=== PATIENT | female | born 1990 | race Hispanic/Latino ===

== ENCOUNTER 2017-06-23 00:05 | Emergency (ER) | payer MEDICAID ==
[2017-06-23 01:39] LABS: APPEARANCE,URINE Cloudy (CLEAR); BILIRUBIN,URINE Negative (NEGATIVE); COLOR,URINE Yellow (YELLOW); GLUCOSE, URINE (UA) Negative (NEGATIVE); KETONES,URINE Negative (NEGATIVE); LEUKOCYTE ESTERASE ,URINE Large (NEGATIVE); NITRATE,URINE Negative (NEGATIVE); OCCULT BLOOD,URINE Large (NEGATIVE); PROTEIN,URINE 300 (NEGATIVE)
[2017-06-23 01:42] LABS: HCG,QUAL RESULT NEGATIVE (NEGATIVE)
[2017-06-23 01:47] LABS: AMORPHOUS SEDIMENT,UR Few /LPF (None Seen); BACTERIA,URINE Rare /HPF (None Seen); MUCUS,URINE Moderate LPF (None Seen); SQUAMOUS EPITHELIAL CELL,UR Few /LPF (0-2); WBC,URINE 51-100 /HPF (0-1)
[2017-06-23] MEDS ORDERED: LIDOCAINE HCL-MPF 1% 2ML VIAL ONE (02:06)
[2017-06-23] MEDS ORDERED: CEFTRIAXONE SODIUM 1 GM ONE (02:06)
[2017-06-23] MEDS ORDERED: PHENAZOPYRIDINE HCL 200 MG TABLET ONE (02:06)
== END 2017-06-23 02:35 | disposition home or self-care (01) ==
LOC: EDH 00:05
DX: N39.0 Urinary tract infection, site not specified (principal); F90.9 Attention-deficit hyperactivity disorder, unspecified type; Z90.49 Acquired absence of other specified parts of digestive tract
CPT/HCPCS: 81001; 81025; 96372; 99284; J0696; J3490

== ENCOUNTER 2017-09-15 23:08 | Emergency (ER) | payer MEDICAID, OTHER ==
[2017-09-16 00:03] LABS: APPEARANCE,URINE Clear (CLEAR); BILIRUBIN,URINE Negative (NEGATIVE); COLOR,URINE Yellow (YELLOW); GLUCOSE, URINE (UA) Negative (NEGATIVE); KETONES,URINE Negative (NEGATIVE); LEUKOCYTE ESTERASE ,URINE Moderate (NEGATIVE); NITRATE,URINE Negative (NEGATIVE); OCCULT BLOOD,URINE Negative (NEGATIVE); PH,URINE 5.5 (5.0-8.0); PROTEIN,URINE Negative (NEGATIVE)
[2017-09-16 00:05] LABS: HCG,QUAL RESULT POSITIVE (NEGATIVE)
[2017-09-16 00:10] LABS: RAPID GROUP A STREP NEGATIVE (NEGATIVE)
[2017-09-16 00:13] LABS: RBC,URINE 0-1 /HPF (0-1)
[2017-09-16 00:14] LABS: BACTERIA,URINE Few /HPF (None Seen); MUCUS,URINE Moderate LPF (None Seen)
== END 2017-09-16 00:46 | disposition home or self-care (01) ==
LOC: EDH 23:08
DX: N30.00 Acute cystitis without hematuria (principal); J06.9 Acute upper respiratory infection, unspecified; Z33.1 Pregnant state, incidental; F41.9 Anxiety disorder, unspecified; F90.9 Attention-deficit hyperactivity disorder, unspecified type
CPT/HCPCS: 81001; 81025; 87088; 87186; 87804; 87880

== ENCOUNTER 2018-04-09 19:51 | Observation (INO) | payer MEDICAID ==
[2018-04-09 20:44] LABS: APPEARANCE,URINE Cloudy (CLEAR); BILIRUBIN,URINE Moderate (NEGATIVE); COLOR,URINE Dark Yellow (YELLOW); GLUCOSE, URINE (UA) Negative (NEGATIVE); KETONES,URINE >=160 mg/dL (NEGATIVE); LEUKOCYTE ESTERASE ,URINE Moderate (NEGATIVE); NITRATE,URINE Negative (NEGATIVE); OCCULT BLOOD,URINE Negative (NEGATIVE); PH,URINE 5.5 (5.0-8.0); PROTEIN,URINE Trace (NEGATIVE)
[2018-04-09] MEDS: LACTATED RINGERS 1000ML IV PRN ×2 (20:47→23:11)
[2018-04-09 20:52] LABS: AMPHET/METH SCREEN,URINE NEGATIVE (NEGATIVE); BARBITURATE SCREEN, URINE NEGATIVE (NEGATIVE); BENZODIAZEPINES SCREEN,URINE NEGATIVE (NEGATIVE); CANNABINOID SCREEN,URINE NEGATIVE (NEGATIVE); COCAINE SCREEN,URINE NEGATIVE (NEGATIVE); OPIATE SCREEN,URINE NEGATIVE (NEGATIVE); PHENCYCLIDINE SCREEN,URINE NEGATIVE (NEGATIVE)
[2018-04-09 21:23] LABS: BACTERIA,URINE Few /HPF (None Seen); MUCUS,URINE Many LPF (None Seen); RBC,URINE None Seen /HPF (0-1)
[2018-04-09] MEDS ORDERED: ONDANSETRON HCL 4 MG/2 ML VIAL IVP SCH (22:00)
== END 2018-04-10 00:35 | disposition home or self-care (01) ==
LOC: EDH 19:51 → LDH 19:52
PROVIDERS: ADMIT Obstetrics & Gynecology; ATTEND Obstetrics & Gynecology
DX: O21.2 Late vomiting of pregnancy (principal); O62.9 Abnormality of forces of labor, unspecified; O26.893 Other specified pregnancy related conditions, third trimester; R19.7 Diarrhea, unspecified; Z3A.34 34 weeks gestation of pregnancy; Z79.899 Other long term (current) drug therapy
CPT/HCPCS: 80305; 81001; 96361 ×2; 96374; G0378 ×5; J2405; J7120 ×2; 96360

== ENCOUNTER 2018-05-12 03:27 | Inpatient (IN) | payer MEDICAID | END 2018-05-14 16:45 | disposition home or self-care (01) | LOC: LDH 03:27 → WSH 15:14 | PROC: 10E0XZZ Delivery of Products of Conception, External Approach (ICD-10-PCS; principal; ~2018-05-12) | DX: O80 Encounter for full-term uncomplicated delivery (principal); Z37.0 Single live birth ==

== ENCOUNTER 2018-07-16 02:45 | Emergency (ER) | payer MEDICAID, OTHER ==
[2018-07-16 03:14] LABS: APPEARANCE,URINE Clear (CLEAR); BILIRUBIN,URINE Negative (NEGATIVE); COLOR,URINE Yellow (YELLOW); GLUCOSE, URINE (UA) Negative (NEGATIVE); KETONES,URINE Trace mg/dL (NEGATIVE); LEUKOCYTE ESTERASE ,URINE Moderate (NEGATIVE); NITRATE,URINE Positive (NEGATIVE); OCCULT BLOOD,URINE Negative (NEGATIVE); PROTEIN,URINE Negative (NEGATIVE)
[2018-07-16 03:19] LABS: HCG,QUAL RESULT NEGATIVE (NEGATIVE)
[2018-07-16 03:30] LABS: BACTERIA,URINE Many /HPF (None Seen); MUCUS,URINE Rare LPF (None Seen); RBC,URINE 0-1 /HPF (0-1); SQUAMOUS EPITHELIAL CELL,UR Moderate /HPF (0-2)
[2018-07-16] MEDS ORDERED: PHENAZOPYRIDINE HCL 200 MG TABLET ONE (03:49)
[2018-07-16] MEDS ORDERED: NITROFURANTOIN MONOHYD/M-CRYST 100 MG CAPSULE PO ONE (03:49)
== END 2018-07-16 04:13 | disposition home or self-care (01) ==
LOC: EDH 02:45
DX: N30.00 Acute cystitis without hematuria (principal); F90.9 Attention-deficit hyperactivity disorder, unspecified type; F41.9 Anxiety disorder, unspecified; F32.9 Major depressive disorder, single episode, unspecified
CPT/HCPCS: 81001; 81025; 87077; 87088; 87186

== ENCOUNTER 2018-09-10 21:13 | Emergency (ER) | payer MEDICAID, OTHER ==
[2018-09-10 21:49] LABS: APPEARANCE,URINE Clear (CLEAR); BILIRUBIN,URINE Negative (NEGATIVE); COLOR,URINE Dark Yellow (YELLOW); GLUCOSE, URINE (UA) Negative (NEGATIVE); KETONES,URINE Trace mg/dL (NEGATIVE); LEUKOCYTE ESTERASE ,URINE Moderate (NEGATIVE); NITRATE,URINE Negative (NEGATIVE); OCCULT BLOOD,URINE Negative (NEGATIVE); PH,URINE 5.5 (5.0-8.0); PROTEIN,URINE Negative (NEGATIVE)
[2018-09-10 21:53] LABS: HCG,QUAL RESULT POSITIVE (NEGATIVE)
[2018-09-10 22:06] LABS: BACTERIA,URINE Few /HPF (None Seen); RBC,URINE None Seen /HPF (0-1)
== END 2018-09-10 22:15 | disposition home or self-care (01) ==
LOC: EDH 21:13
DX: O23.41 Unspecified infection of urinary tract in pregnancy, first trimester (principal); O99.341 Other mental disorders complicating pregnancy, first trimester; F41.8 Other specified anxiety disorders; F32.9 Major depressive disorder, single episode, unspecified; F90.9 Attention-deficit hyperactivity disorder, unspecified type; Z90.49 Acquired absence of other specified parts of digestive tract; Z3A.01 Less than 8 weeks gestation of pregnancy
CPT/HCPCS: 81001; 81025

== ENCOUNTER 2019-03-29 23:52 | Emergency (ER) | payer MEDICAID | END 2019-03-30 00:36 | disposition home or self-care (01) | LOC: EDH 23:52 | DX: O9A.213 Injury, poisoning and certain other consequences of external causes complicating pregnancy, third trimester (principal); S69.81XA Other specified injuries of right wrist, hand and finger(s), initial encounter; Z3A.30 30 weeks gestation of pregnancy; X12.XXXA Contact with other hot fluids, initial encounter; Y93.89 Activity, other specified; Y92.89 Other specified places as the place of occurrence of the external cause; Y99.8 Other external cause status ==

== ENCOUNTER 2019-07-31 02:34 | Emergency (ER) | payer MEDICAID ==
[~2019-07-31 02:34] MED LIST: FERR-82 PO; PREN-154 PO
== END 2019-07-31 02:50 | disposition home or self-care (01) ==
LOC: EDH 02:34
DX: B34.9 Viral infection, unspecified (principal); F32.9 Major depressive disorder, single episode, unspecified; F41.9 Anxiety disorder, unspecified; F90.9 Attention-deficit hyperactivity disorder, unspecified type; Z90.49 Acquired absence of other specified parts of digestive tract
CPT/HCPCS: 99281

== ENCOUNTER 2021-01-06 02:23 | Emergency (ER) | payer MEDICAID ==
[~2021-01-06] VITALS: Ht 160 cm; Wt 78.0 kg
[2021-01-06 02:28] VITALS: BP 119/71
[2021-01-06 02:35] VITALS: BP 107/68
[2021-01-06] MEDS ORDERED: FAMOTIDINE 20MG VIAL IV ONE ×2 (03:00→03:08)
[2021-01-06] MEDS ORDERED: ONDANSETRON 4MG INJ IVP ONE (03:00)
[2021-01-06] MEDS ORDERED: 0.9%NACL 1000ML 1,000 ML IV ONE (03:00)
[2021-01-06] MEDS ORDERED: ONDANSETRON 4MG INJ ONE (03:08)
[2021-01-06 03:16] LABS: APPEARANCE,URINE CLEAR (CLEAR); BILIRUBIN,URINE NEGATIVE (NEGATIVE); COLOR,URINE YELLOW (YELLOW); GLUCOSE, URINE (UA) NEGATIVE (NEGATIVE); HCG,QUAL RESULT NEGATIVE (NEGATIVE); KETONES,URINE NEGATIVE (NEGATIVE); LEUKOCYTE ESTERASE ,URINE NEGATIVE (NEGATIVE); NITRATE,URINE NEGATIVE (NEGATIVE); OCCULT BLOOD,URINE NEGATIVE (NEGATIVE); PH,URINE 6.5 (5.0-8.0); PROTEIN,URINE NEGATIVE (NEGATIVE)
[2021-01-06 03:23] LABS: BASOPHILS % (AUTO) 0.2 % (0.0-5.0); EOSINOPHILS % (AUTO) 1.5 % (0.0-8.0); HEMATOCRIT 34.3 % (36-48); LYMPHOCYTES % (AUTO) 31.1 % (21.0-51.0); MEAN CORPUSCULAR HEMOGLOBIN 19.8 pg (27.0-33.0); MEAN CORPUSCULAR HGB CONC 28.6 g/dL (32.0-36.0); MEAN CORPUSCULAR VOLUME 69.4 fL (79-99); MONOCYTES % (AUTO) 8.1 % (3.0-13.0); NEUTROPHILS % (AUTO) 58.9 % (40.0-77.0); PLATELET COUNT (AUTO) 393 K/uL (130-400); RED BLOOD CELL COUNT(AUTO) 4.94 MIL/uL (4.00-5.50); RED CELL DISTRIBUTION WIDTH 19.1 % (11.0-15.5); WHITE BLOOD COUNT (AUTO) 8.6 K/uL (4.8-10.8)
[2021-01-06 03:33] LABS: CREATININE 0.8 mg/dL (0.5-1.5)
[2021-01-06 03:37] LABS: ALBUMIN 3.7 g/dL (3.5-5.0); BILIRUBIN,TOTAL 0.6 mg/dL (0.2-1.0); TOTAL PROTEIN, SERUM 8.1 g/dL (6.0-8.3)
[2021-01-06] MEDS ORDERED: PANT40TA PO (04:22)
[2021-01-06] MEDS ORDERED: ONDA4TAB10 PO (04:22)
[2021-01-06 04:43] VITALS: BP 119/63
== END 2021-01-06 04:43 | disposition home or self-care (01) ==
LOC: EDH 02:23
DX: B34.9 Viral infection, unspecified (principal); E86.9 Volume depletion, unspecified; Z20.822 Contact with and (suspected) exposure to COVID-19; R11.2 Nausea with vomiting, unspecified; F41.9 Anxiety disorder, unspecified; F32.9 Major depressive disorder, single episode, unspecified; F90.9 Attention-deficit hyperactivity disorder, unspecified type; Z79.899 Other long term (current) drug therapy
CPT/HCPCS: 36415; 80053; 81003; 81025; 83690; 85025; 87635; 96374; 96375; 99284; C9803; J2405; S0028; J3490

== ENCOUNTER 2021-02-06 12:47 | Emergency (ER) | payer MEDICAID ==
[~2021-02-06] VITALS: Ht 160 cm; Wt 79.4 kg
[~2021-02-06 12:47] MED LIST changes: +ONDA4TAB10 PO; +PANT40TA PO
[2021-02-06 12:48] VITALS: BP 112/71
[2021-02-06 13:50] LABS: APPEARANCE,URINE TURBID (CLEAR); BILIRUBIN,URINE SMALL (NEGATIVE); COLOR,URINE YELLOW (YELLOW); GLUCOSE, URINE (UA) NEGATIVE (NEGATIVE); KETONES,URINE 5 mg/dL (NEGATIVE); LEUKOCYTE ESTERASE ,URINE SMALL (NEGATIVE); NITRATE,URINE NEGATIVE (NEGATIVE); OCCULT BLOOD,URINE LARGE (NEGATIVE); PH,URINE 5.5 (5.0-8.0); PROTEIN,URINE 30 mg/dL (NEGATIVE)
[2021-02-06 14:08] LABS: BACTERIA,URINE Many /HPF (None Seen); MUCUS,URINE Moderate LPF (None Seen); RBC,URINE 0-1 /HPF (0-1); SQUAMOUS EPITHELIAL CELL,UR Many /HPF (0-2); WBC,URINE 0-1 /HPF (0-1)
[2021-02-06 14:11] LABS: HCG,QUAL RESULT NEGATIVE (NEGATIVE)
== END 2021-02-06 15:54 | disposition home or self-care (01) ==
LOC: EDH 12:47
DX: R51.9 Headache, unspecified (principal); M54.9 Dorsalgia, unspecified; N93.9 Abnormal uterine and vaginal bleeding, unspecified; F90.9 Attention-deficit hyperactivity disorder, unspecified type
CPT/HCPCS: 36415; 81001; 81025; 84703; 87077; 87088; 87186

== ENCOUNTER 2021-03-21 01:39 | Emergency (ER) | payer MEDICAID ==
[~2021-03-21] VITALS: Ht 160 cm; Wt 78.0 kg
[2021-03-21 07:17] LABS: APPEARANCE,URINE Turbid (CLEAR); BILIRUBIN,URINE Negative (NEGATIVE); COLOR,URINE Yellow (YELLOW); GLUCOSE, URINE (UA) Negative (NEGATIVE); HCG,QUAL RESULT NEGATIVE (NEGATIVE); KETONES,URINE Negative (NEGATIVE); LEUKOCYTE ESTERASE ,URINE Large (NEGATIVE); NITRATE,URINE Negative (NEGATIVE); OCCULT BLOOD,URINE Negative (NEGATIVE); PROTEIN,URINE Negative (NEGATIVE)
[2021-03-21 07:24] LABS: BACTERIA,URINE Few /HPF (None Seen); MUCUS,URINE Many LPF (None Seen); RBC,URINE 0-1 /HPF (0-1); SQUAMOUS EPITHELIAL CELL,UR Moderate /HPF (0-2)
[2021-03-21] MEDS ORDERED: ACET500C4 PO (07:47)
[2021-03-21] MEDS ORDERED: CEPH500B PO (07:47)
[2021-03-21 08:11] VITALS: BP 105/62
== END 2021-03-21 08:06 | disposition home or self-care (01) ==
LOC: EDH 01:39
DX: N39.0 Urinary tract infection, site not specified (principal); F90.9 Attention-deficit hyperactivity disorder, unspecified type; Z79.899 Other long term (current) drug therapy
CPT/HCPCS: 81001; 81025; 87088

== ENCOUNTER 2021-05-10 01:50 | Emergency (ER) | payer MEDICAID ==
[~2021-05-10] VITALS: Ht 160 cm; Wt 77.6 kg
[~2021-05-10 01:50] MED LIST changes: +ACET500C4 PO; +CEPH500B PO
[2021-05-10 02:49] VITALS: BP 110/78
[2021-05-10] MEDS ORDERED: DICL35CA3 PO (02:57)
[2021-05-10] MEDS: KETOROLAC 60 MG VIAL (30MG/ML) ONE (02:57)
[2021-05-10] MEDS ORDERED: KETOROLAC 60 MG VIAL (30MG/ML) IM ONE (03:00)
== END 2021-05-10 03:07 | disposition home or self-care (01) ==
LOC: EDH 01:50
DX: U07.1 COVID-19 (principal); F41.9 Anxiety disorder, unspecified; Z79.1 Long term (current) use of non-steroidal anti-inflammatories (NSAID); Z79.899 Other long term (current) drug therapy
CPT/HCPCS: 87635; 87804 ×2; 96372; 99283; C9803; J1885

== ENCOUNTER 2021-09-22 21:02 | Emergency (ER) | payer MEDICAID ==
[~2021-09-22] VITALS: Ht 160 cm; Wt 78.0 kg
[~2021-09-22 21:02] MED LIST changes: +DICL35CA3 PO
[2021-09-22 21:39] LABS: BASOPHILS % (AUTO) 0.3 % (0.0-5.0); EOSINOPHILS % (AUTO) 1.1 % (0.0-8.0); MEAN CORPUSCULAR HEMOGLOBIN 21.4 pg (27.0-33.0); MEAN CORPUSCULAR HGB CONC 29.5 g/dL (32.0-36.0); MEAN CORPUSCULAR VOLUME 72.5 fL (79-99); MONOCYTES % (AUTO) 5.4 % (3.0-13.0); NEUTROPHILS % (AUTO) 70.8 % (40.0-77.0); PLATELET COUNT (AUTO) 361 K/uL (130-400); RED CELL DISTRIBUTION WIDTH 17.2 % (11.0-15.5); WHITE BLOOD COUNT (AUTO) 9.9 K/uL (4.8-10.8)
[2021-09-22 21:56] LABS: APPEARANCE,URINE Cloudy (CLEAR); BILIRUBIN,URINE Negative (NEGATIVE); COLOR,URINE Yellow (YELLOW); GLUCOSE, URINE (UA) Negative (NEGATIVE); KETONES,URINE Trace mg/dL (NEGATIVE); LEUKOCYTE ESTERASE ,URINE Moderate (NEGATIVE); NITRATE,URINE Negative (NEGATIVE); OCCULT BLOOD,URINE Negative (NEGATIVE); PH,URINE 5.5 (5.0-8.0); PROTEIN,URINE Negative (NEGATIVE)
[2021-09-22 22:01] LABS: HCG,QUAL RESULT NEGATIVE (NEGATIVE)
[2021-09-22 22:02] LABS: RBC,URINE 0-1 /HPF (0-1)
[2021-09-22 22:03] LABS: BACTERIA,URINE Few /HPF (None Seen); CALCIUM OXALATE CRYSTALS,UR Few /LPF (None Seen); MUCUS,URINE Few LPF (None Seen); SQUAMOUS EPITHELIAL CELL,UR Moderate /HPF (0-2)
[2021-09-22 22:06] LABS: ALBUMIN 3.7 g/dL (3.5-5.0); BILIRUBIN,TOTAL 0.6 mg/dL (0.2-1.0); CREATININE 0.9 mg/dL (0.5-1.5); POTASSIUM 3.6 mmol/L (3.5-5.1); TOTAL PROTEIN, SERUM 7.9 g/dL (6.0-8.3)
[2021-09-22] MEDS ORDERED: CEFTRIAXONE 1G VIAL IVP ONE (22:30)
[2021-09-22] MEDS ORDERED: ONDANSETRON 4MG INJ IVP ONE (22:30)
[2021-09-22] MEDS ORDERED: KETOROLAC 15MG/ML VIAL (15MG/ML) IV ONE (22:30)
[2021-09-22] MEDS ORDERED: 0.9%NACL 1000ML 1,000 ML IV ONE (22:30)
[2021-09-22 23:01] VITALS: BP 115/71
[2021-09-22] MEDS ORDERED: POLY17PO4 PO (23:36)
[2021-09-22] MEDS ORDERED: CEPH500B PO (23:36)
== END 2021-09-22 23:56 | disposition home or self-care (01) ==
LOC: EDH 21:02
DX: N39.0 Urinary tract infection, site not specified (principal); K59.00 Constipation, unspecified; Z79.1 Long term (current) use of non-steroidal anti-inflammatories (NSAID); Z90.49 Acquired absence of other specified parts of digestive tract
CPT/HCPCS: 36415; 74176; 80053; 81001; 81025; 85025; 87088; 96361; 96374; 96375; 99284; J0696; J1885; J2405; J7030

== ENCOUNTER 2022-03-30 22:39 | Emergency (ER) | payer MEDICAID ==
[~2022-03-30] VITALS: Ht 160 cm; Wt 80.9 kg
[~2022-03-30 22:39] MED LIST changes: +POLY17PO4 PO
[2022-03-30] MEDS ORDERED: D-ME1POW16 PO (23:28)
[2022-03-30] MEDS ORDERED: OSELTAMIVIR PHOSPHATE 75 MG CAP ONE (23:36)
[2022-03-30] MEDS ORDERED: OSEL75 PO (23:41)
[2022-03-30] MEDS ORDERED: ACETAMINOPHEN 500 MG TABLET PO ONE (23:42)
[2022-03-30] MEDS: OSELTAMIVIR PHOSPHATE 75 MG CAP PO SCH ×2 (23:42→23:49)
[2022-03-30 23:46] VITALS: BP 115/71
[2022-03-31] MEDS ORDERED: GUAIFENESIN-DM 200/20 MG 10 ML PO ONE
[2022-03-31] MEDS ORDERED: ACETAMINOPHEN 500 MG TABLET PO ONE
== END 2022-03-30 23:51 | disposition home or self-care (01) ==
LOC: EDH 22:39
DX: J10.1 Influenza due to other identified influenza virus with other respiratory manifestations (principal); Z20.822 Contact with and (suspected) exposure to COVID-19; F90.9 Attention-deficit hyperactivity disorder, unspecified type; G47.00 Insomnia, unspecified; Z98.890 Other specified postprocedural states; Z79.899 Other long term (current) drug therapy
CPT/HCPCS: 99284; 87635; 87880; 87804 ×2; C9803

== ENCOUNTER 2022-09-19 04:30 | Emergency (ER) | payer MEDICAID ==
[~2022-09-19] VITALS: Ht 160 cm; Wt 78.9 kg
[~2022-09-19 04:30] MED LIST changes: +D-ME1POW16 PO; +OSEL75 PO
[2022-09-19 05:51] LABS: APPEARANCE,URINE CLOUDY (CLEAR); BILIRUBIN,URINE NEGATIVE (NEGATIVE); COLOR,URINE YELLOW (YELLOW); GLUCOSE, URINE (UA) NEGATIVE (NEGATIVE); KETONES,URINE NEGATIVE (NEGATIVE); LEUKOCYTE ESTERASE ,URINE 500 Leu/uL (NEGATIVE); NITRATE,URINE NEGATIVE (NEGATIVE); OCCULT BLOOD,URINE NEGATIVE (NEGATIVE); PH,URINE 5.5 (5.0-8.0); PROTEIN,URINE 30 mg/dL (NEGATIVE)
[2022-09-19 05:55] LABS: MUCUS,URINE FEW LPF (None Seen); SQUAMOUS EPITHELIAL CELL,UR MANY /HPF (0-2); WBC,URINE 51-100 /HPF (0-1)
[2022-09-19] MEDS ORDERED: CEPH500C2 PO (07:03)
[2022-09-19 07:11] VITALS: BP 118/68
== END 2022-09-19 07:13 | disposition home or self-care (01) ==
LOC: EDH 04:30
DX: N39.0 Urinary tract infection, site not specified (principal); J06.9 Acute upper respiratory infection, unspecified; B97.89 Other viral agents as the cause of diseases classified elsewhere; F41.9 Anxiety disorder, unspecified; F32.A Depression, unspecified; Z20.822 Contact with and (suspected) exposure to COVID-19; Z90.49 Acquired absence of other specified parts of digestive tract; Z98.890 Other specified postprocedural states; Z79.899 Other long term (current) drug therapy
CPT/HCPCS: 99284; 71046; 87635; 87088; 87804 ×2; 81001; 81025; C9803

== ENCOUNTER 2023-03-04 20:02 | Emergency (ER) | payer MEDICAID ==
[~2023-03-04] VITALS: Ht 160 cm; Wt 77.1 kg
[~2023-03-04 20:02] MED LIST changes: +CEPH500C2 PO
[2023-03-04] MEDS ORDERED: TETRACAINE HCL 0.5% 4 ML OPHTH SOLN OP SCH (23:00)
[2023-03-04] MEDS ORDERED: FLUORESCEIN SODIUM 1 STRIP STRIP OP SCH (23:00)
[2023-03-04 23:12] LABS: HCG,QUALITATIVE URINE NEGATIVE (NEGATIVE)
[2023-03-04 23:15] LABS: APPEARANCE,URINE TURBID (CLEAR); BILIRUBIN,URINE NEGATIVE (NEGATIVE); COLOR,URINE DARK-BROWN (YELLOW); GLUCOSE, URINE (UA) NEGATIVE (NEGATIVE); KETONES,URINE 10 mg/dL (NEGATIVE); LEUKOCYTE ESTERASE ,URINE 250 Leu/uL (NEGATIVE); NITRATE,URINE NEGATIVE (NEGATIVE); OCCULT BLOOD,URINE LARGE (NEGATIVE); PH,URINE 5.5 (5.0-8.0); PROTEIN,URINE 300 mg/dL (NEGATIVE); UROBILINOGEN,URINE 3 mg/dL (0.2-1.0)
[2023-03-04 23:18] LABS: ADD UA MICROSCOPIC YES
[2023-03-04 23:21] LABS: CALCIUM OXALATE CRYSTALS,UR MOD /LPF (None Seen); MUCUS,URINE MANY LPF (None Seen); RBC,URINE TNTC /HPF (0-1); SQUAMOUS EPITHELIAL CELL,UR MOD /HPF (0-2); WBC CLUMP RARE /HPF (0-1); WBC,URINE >100 /HPF (0-1)
[2023-03-05] MEDS ORDERED: CEFTRIAXONE 1G VIAL IM ONE
[2023-03-05 00:22] VITALS: BP 110/76; PULSE 82; RESP 18; O2SAT 100
[2023-03-05] MEDS ORDERED: DOXY-469 PO (00:42)
[2023-03-05] MEDS ORDERED: CILO2.5OS OU (00:42)
[2023-03-05] MEDS ORDERED: ERYTHROMYCIN BASE 0.5% OPHTH OINT 1 GM TUBE OU SCH (01:00)
== END 2023-03-05 00:58 | disposition home or self-care (01) ==
LOC: EDH 20:02
DX: N30.00 Acute cystitis without hematuria (principal); H10.9 Unspecified conjunctivitis; Z79.899 Other long term (current) drug therapy; Z90.49 Acquired absence of other specified parts of digestive tract
CPT/HCPCS: 99283; 87088; 81001; 81025; 96372; J0696

== ENCOUNTER 2023-06-24 01:35 | Emergency (ER) | payer MEDICAID ==
[~2023-06-24] VITALS: Ht 160 cm; Wt 82.1 kg
[~2023-06-24 01:35] MED LIST changes: +CILO2.5OS OU; +DOXY-469 PO
[2023-06-24] MEDS: MECLIZINE HCL 25 MG TABLET PO ONE (01:57)
[2023-06-24 02:02] LABS: BASOPHILS # (AUTO) 0.03 K/uL (0.00-0.20); BASOPHILS % (AUTO) 0.4 % (0.0-5.0); EOSINOPHILS # (AUTO) 0.23 K/uL (0.00-0.70); EOSINOPHILS % (AUTO) 3.1 % (0.0-8.0); HEMATOCRIT 35.8 % (36-48); IMMATURE GRANULOCYTE ABSOLUTE 0.02 K/uL (0-1); LYMPHOCYTES # (AUTO) 2.8 K/uL (1.0-4.8); LYMPHOCYTES % (AUTO) 37.4 % (21.0-51.0); MEAN CORPUSCULAR HEMOGLOBIN 24.8 pg (27.0-33.0); MEAN CORPUSCULAR HGB CONC 31.6 g/dL (32.0-36.0); MEAN CORPUSCULAR VOLUME 78.7 fL (79-99); MONOCYTES # (AUTO) 0.7 K/uL (0.1-1.0); MONOCYTES % (AUTO) 9.4 % (3.0-13.0); NEUTROPHILS # (AUTO) 3.7 K/uL (1.8-7.7); NEUTROPHILS % (AUTO) 49.4 % (40.0-77.0); PLATELET COUNT (AUTO) 304 K/uL (130-400); RED BLOOD CELL COUNT(AUTO) 4.55 MIL/uL (4.00-5.50); RED CELL DISTRIBUTION WIDTH 15.6 % (11.0-15.5); WHITE BLOOD COUNT (AUTO) 7.5 K/uL (4.8-10.8)
[2023-06-24 02:11] LABS: CREATININE 0.9 mg/dL (0.5-1.5); POTASSIUM 3.8 mmol/L (3.5-5.1)
[2023-06-24 02:21] LABS: ALBUMIN 3.1 g/dL (3.5-5.0); BILIRUBIN,TOTAL 0.4 mg/dL (0.2-1.0); TOTAL PROTEIN, SERUM 7.1 g/dL (6.0-8.3)
[2023-06-24] MEDS ORDERED: OMEP40CA21 PO (04:35)
[2023-06-24] MEDS ORDERED: DICY20TA2 PO (04:35)
[2023-06-24] MEDS ORDERED: MECL-262 PO (04:35)
[2023-06-24 05:21] VITALS: BP 146/70; PULSE 72; RESP 18; O2SAT 98
== END 2023-06-24 05:38 | disposition home or self-care (01) ==
LOC: EDH 01:35
DX: R42 Dizziness and giddiness (principal); R10.11 Right upper quadrant pain; R10.2 Pelvic and perineal pain
CPT/HCPCS: 36415; 70450; 80053; 83690; 84702; 85025

== ENCOUNTER 2023-09-01 04:30 | Emergency (ER) | payer MEDICAID ==
[~2023-09-01] VITALS: Ht 160 cm; Wt 86.2 kg
[~2023-09-01 04:30] MED LIST changes: +DICY20TA2 PO; +MECL-262 PO; +OMEP40CA21 PO
[2023-09-01 04:49] VITALS: BP 116/77; PULSE 68; RESP 18; O2SAT 98
[2023-09-01 04:53] LABS: RAPID GROUP A STREP negative (NEGATIVE)
[2023-09-01 05:02] LABS: INFLUENZA TYPE A NEGATIVE FOR TYPE A (NEG); INFLUENZA TYPE B NEGATIVE FOR TYPE B (NEG)
[2023-09-01 05:04] LABS: SARS-CoV-2, RNA, NAAT NEGATIVE SARS CoV-2 (NEGATIVE)
[2023-09-01 05:27] LABS: APPEARANCE,URINE CLOUDY (CLEAR); BILIRUBIN,URINE NEGATIVE (NEGATIVE); COLOR,URINE LIGHT-YELLOW (YELLOW); GLUCOSE, URINE (UA) NEGATIVE (NEGATIVE); KETONES,URINE NEGATIVE (NEGATIVE); LEUKOCYTE ESTERASE ,URINE 250 Leu/uL (NEGATIVE); NITRATE,URINE 2+ (NEGATIVE); OCCULT BLOOD,URINE NEGATIVE (NEGATIVE); PROTEIN,URINE NEGATIVE (NEGATIVE); UROBILINOGEN,URINE 0.2 mg/dL (0.2-1.0)
[2023-09-01 05:32] LABS: BACTERIA,URINE MOD /HPF (None Seen); MUCUS,URINE RARE LPF (None Seen); SQUAMOUS EPITHELIAL CELL,UR FEW /HPF (0-2); WBC,URINE 26-50 /HPF (0-1)
[2023-09-01 05:37] LABS: HCG,QUALITATIVE URINE NEGATIVE (NEGATIVE)
[2023-09-01] MEDS ORDERED: CEPH500B PO (05:48)
== END 2023-09-01 05:53 | disposition home or self-care (01) ==
LOC: EDH 04:30
DX: N39.0 Urinary tract infection, site not specified (principal); F41.9 Anxiety disorder, unspecified; F32.A Depression, unspecified; Z20.822 Contact with and (suspected) exposure to COVID-19; Z79.899 Other long term (current) drug therapy; Z98.890 Other specified postprocedural states; Z90.49 Acquired absence of other specified parts of digestive tract
CPT/HCPCS: 81001; 81025; 87077; 87088; 87186; 87635; 87804; 87880

== ENCOUNTER 2024-02-19 04:31 | Emergency (ER) | payer MEDICAID ==
[~2024-02-19] VITALS: Ht 160 cm; Wt 86.6 kg
[~2024-02-19 04:31] MED LIST changes: -ACET500C4 PO; -CEPH500C2 PO; -CILO2.5OS OU; -D-ME1POW16 PO; -DICL35CA3 PO; -DICY20TA2 PO; -DOXY-469 PO; -MECL-262 PO; -ONDA4TAB10 PO; -OSEL75 PO; -PANT40TA PO; -POLY17PO4 PO
--- NOTE | 2024-02-19 04:36 | NUR ---
UA CUP PROVIDED
--- NOTE | 2024-02-19 05:22 | ERN ---
ED Note History of Present Illness Stated Complaint: TOOTHACHE Chief Complaint: Tooth Ache/Pain Time Seen by MD: 04:46 Dictation: This is a 33-year-old female with long history of tooth pain for many years came in with complaints of severe tooth pain and left-sided headache. She stated that upper 1st molar tooth broke when she was eating a chip and since then has had issues with pain infection and radiating headaches. She has been feeling chills for the past few days but no documented fever. Was extremely uncomfortable holding the left side of her head and [id number] Tylenol has not given her any relief she has been unable to sleep or eat due to the constant tooth pain. No bleeding or purulent drainage. Does have a history of halitosis. Long time ago she has seen a dentist for the same broken tooth and she was told she had infection Temperature 97.9 pulse 84 respirations 16 blood pressure 117/71 with a pulse oximetry of 100% Allergies: Coded Allergies: No Known Drug Allergies (Verified Allergy, 10/05/12) Home Meds Active Scripts Ibuprofen (Ibuprofen 800 mg Tab) 800 Mg Tab, 800 MG PO Q6H PRN for PAIN, #30 TAB Prov:DALLIN MCGOWAN DO 02/19/24 Acetaminophen with Codeine (Acetaminophen-Cod #3 Tablet) 300 Mg-30 Mg Tablet, 1 TAB PO Q6HPRN PRN for pain for 7 Days, #20 TAB 0 Refills Prov:DALLIN MCGOWAN DO 02/19/24 Amoxicillin/Potassium Clav (Augmentin 500-125 Tablet) 500 Mg-125 Mg Tablet, 1 TAB PO BID for 10 Days, #20 TAB 0 Refills Prov:DALLIN MCGOWAN DO 02/19/24 Chlorhexidine Gluconate (Chlorhexidine Gluconate) 0.12 % Mouthwash, 15 ML PO BID for 14 Days, #473 ML 0 Refills Swish and spit Prov:АНДРЕЙ WILSON MD 02/19/24 Cephalexin Monohydrate (Keflex) 500 Mg Cap, 500 MG PO QID for 7 Days, #28 CAP Prov:RANDAL ABDALLA MD 09/01/23 Omeprazole (Omeprazole) 40 Mg Capsule.dr, 40 MG PO DAILY, #30 CAP Prov:RANDAL ABDALLA MD 06/24/23 Reported Medications Ferrous Sulfate (Iron) 325 Mg Tablet, 325 MG PO DAILY, TAB 05/11/19 Vits #93/Iron Fum/FA ( Formula Tablet) 1 Each Tablet, 1 EACH PO DAILY, TAB 05/11/19 Past Medical History Past Medical History: Anxiety, Depression, Other Additional Past Medical Hx: INSOMNIA, ADHD Surgical History: Cholecystectomy Surgical History Other: 4 WISDOM TEETH Family History: Negative Social History: Negative, Lives with family LMP: Feb 25, 2024 : 5 Para: 5 RN Note Reviewed/Agreed w/PFSH: Yes Review of System Dictation Constitutional: Positive for subjective fever,chills, and denies weight loss Eyes: Negative for injury, pain,redness, and discharge ENT: Negative for injury,pain or swelling Cardiovascular: Negative for chest pain, palpitations, and edema Respiratory: Negative for shortness of breath, cough, and wheezing, Abdomen/GI: Negative for abdominal pain, nausea, vomiting, diarrhea, and constipation Back: Negative for injury and pain : Negative for injury, bleeding and discharge MS/Extremity: Negative for injury and deformity Skin: Negative for rash, and discoloration Neuro: Negative for headache, weakness, numbness, tingling, and seizure Psych: Negative for suicide ideation, homicidal ideation, and hallucinations Initial Vital Sign VS Vital Signs Date Time Temp Pulse Resp B/P (MAP) Pulse Ox O2 Delivery O2 Flow Rate FiO2 02/19/24 04:32 97.9 84 16 117/71 100 Room Air 02/19/24 05:15 0 21 Physical Exam Dictation General: awake, alert, NAD Head/Face: Normocephalic, atraumatic no obvious left facial swelling or asymmetry Eyes: PERRL, EOMI, vision at baseline ENT: oral cavity clear, TMs clear, no signs of infection oral cavity examination-upper jaw left 1st molar broken with scooped surface exposed central polyp. It also has black discoloration. I did not appreciate any adjacent gingival induration or abscess. Neck: Trachea midline, supple, no nuchal rigidity Cardiovascular: RRR, normal S1/S2, No MRGs, no JVD Respiratory: CTAB, no respiratory distress, No rales or wheezes Abdomen: Soft, non-tender, non-distended, normal bowel sounds, no guarding or rebound. Skin: Warm, dry, normal turgor, no rash MS/Extremity: Pulses equal, no cyanosis, neurovascular intact, FROM Neuro: COAx4, GCS 15, strength 5/5, CN 2-12 intact, normal cerebellar exam, normal gait, Psych: Normal behavior, mood, and affect normal Extremities-trace edema without any palpable cords, Homans sign is negative Results (Laboratory/Radiology) Laboratory/Radiology Laboratory Tests Test 02/19/24 05:15 02/19/24 05:18 Urine Color LIGHT-YELLOW (YELLOW) Urine Appearance CLOUDY (CLEAR) H Urine pH 6.5 (5.0-8.0) Urine Specific [place] 1.020 (1.001-1.031) Urine Protein NEGATIVE mg/dL (NEGATIVE) Urine Glucose (UA) NEGATIVE mg/dL (NEGATIVE) Urine Ketones NEGATIVE mg/dL (NEGATIVE) Urine Occult Blood NEGATIVE (NEGATIVE) Urine Nitrate NEGATIVE (NEGATIVE) Urine Bilirubin NEGATIVE mg/dL (NEGATIVE) Urine Urobilinogen 0.2 mg/dL (0.2-1.0) Urine Leukocyte Esterase NEGATIVE Mehdi/uL Urine RBC 0-1 /HPF (0-1) Urine WBC 2-5 /HPF (0-1) H Urine Squamous Epithelial Cells MANY /HPF (0-2) Urine Bacteria FEW /HPF (None Seen) Urine HCG, Qualitative NEGATIVE (NEGATIVE) White Blood Count 8.5 K/uL (4.8-10.8) Red Blood Count 4.68 MIL/uL (4.00-5.50) Hemoglobin 11.3 g/dL (12.0-16.0) L Hematocrit 37.0 % (36-48) Mean Corpuscular Volume 79.1 fL (79-99) Mean Corpuscular Hemoglobin 24.1 pg (27.0-33.0) L Mean Corpuscular Hemoglobin Concent 30.5 g/dL (32.0-36.0) L Red Cell Distribution Width 14.3 % (11.0-15.5) Platelet Count 348 K/uL (130-400) Mean Platelet Volume 10.7 fL (7.5-10.5) H Immature Granulocyte % (Auto) 0.2 % (0-1) Neutrophils (%) (Auto) 59.0 % (40.0-77.0) Lymphocytes (%) (Auto) 31.5 % (21.0-51.0) Monocytes (%) (Auto) 7.1 % (3.0-13.0) Eosinophils (%) (Auto) 1.8 % (0.0-8.0) Basophils (%) (Auto) 0.4 % (0.0-5.0) Neutrophils # (Auto) 5.0 K/uL (1.8-7.7) Lymphocytes # (Auto) 2.7 K/uL (1.0-4.8) Monocytes # (Auto) 0.6 K/uL (0.1-1.0) Eosinophils # (Auto) 0.15 K/uL (0.00-0.70) Basophils # (Auto) 0.03 K/uL (0.00-0.20) Absolute Immature Granulocyte (auto 0.02 K/uL (0-1) Nucleated Red Blood Cells 0.0 % (0.0-0.19) Red Blood Cell Morphology See comments Sodium Level 138 mmol/L (136-145) Potassium Level 3.7 mmol/L (3.5-5.1) Chloride Level 104 mmol/L (101-111) Carbon Dioxide Level 31 mmol/L (21-32) Blood Urea Nitrogen 11 mg/dL (7-18) Creatinine 0.9 mg/dL (0.5-1.0) Glomerular Filtration Rate Calc 87 mL/min (>90) Random Glucose 98 mg/dL (70-105) Total Calcium 8.9 mg/dL (8.5-10.1) Labs Reviewed?: Yes ED Course ED Course Orders Procedure Category Date Status Time Cbc With Differential LAB 02/19/24 Complete 05:07 Basic Metabolic Panel LAB 02/19/24 Complete 05:07 ,Urine Test LAB 02/19/24 Complete 05:07 Urinalysis Profile LAB 02/19/24 Complete 05:07 Hydromorphone 1 Mg PHA 02/19/24 Complete Inj (Dilaudid 1mg Inj 05:30 Ondansetron 4mg Inj PHA 02/19/24 Complete (Zofran 4mg Inj) 05:45 Famotidine 20mg Vial PHA 02/19/24 Complete (Pepcid 20mg Vial) 05:47 Ondansetron 4mg Inj PHA 02/19/24 Complete (Zofran 4mg Inj) 06:00 Famotidine 20mg Vial PHA 02/19/24 Complete (Pepcid 20mg Vial) 06:00 Ct Maxillofacial W/O CT 02/19/24 Taken Contrast 06:09 Ondansetron 4mg Inj PHA 02/19/24 Complete (Zofran 4mg Inj) 07:00 Current Medications Medications (Trade) Dose Ordered Sig/Rosa Maria Route PRN Reason Start Time Stop Time Status Last Admin Dose Admin Famotidine (Pepcid 20mg Vial) 20 mg ONCE ONCE IV 02/19/24 06:00 02/19/24 06:01 DC 02/19/24 05:58 Famotidine (Pepcid 20mg Vial) 20 mg STK-MED ONCE IV 02/19/24 05:47 02/19/24 05:48 DC Hydromorphone HCl (DiLAUDid 1MG INJ) 1 mg ONCE ONCE IVP 02/19/24 05:30 02/19/24 05:31 DC 02/19/24 05:39 Ondansetron HCl (zoFRAN 4MG INJ) 4 mg ONCE ONCE IVP 02/19/24 06:00 02/19/24 06:01 DC 02/19/24 05:58 Ondansetron HCl (zoFRAN 4MG INJ) 4 mg ONCE ONCE IVP 02/19/24 07:00 02/19/24 07:01 DC 02/19/24 06:52 Ondansetron HCl (zoFRAN 4MG INJ) 4 mg STK-MED ONCE .ROUTE 02/19/24 05:45 02/19/24 05:47 DC Vital Signs Date Time Temp Pulse Resp B/P (MAP) Pulse Ox O2 Delivery O2 Flow Rate FiO2 02/19/24 06:28 72 16 110/85 100 Room Air* 0 21 02/19/24 05:50 65 20 122/73 100 Room Air* 0 21 02/19/24 05:15 98.1 68 16 116/68 100 Room Air* 0 21 02/19/24 04:32 97.9 84 16 117/71 100 Room Air We will perform diagnostic labs,and administer medications according to the patient's complaint. Once the results are available, will review and personally interpreted the labs to rule out any acute life-threatening emergency the trach require immediate intervention and treatment. I will then re-evaluate the patient after treatment and diagnostic exams have return to determine whether the patient requires any further testing, can safely be discharged home or need further admission to hospital for additional treatment and evaluation. Labs reviewed CBC BNP 7 with a normal limits urinalysis is unremarkable 5:40 a.m.-patient received Dilaudid 1 mg for the severe toothache and headache. She began complaining of discomfort in the throat and nausea. No respiratory distress tongue swelling or lip swelling. No drop in blood pressure. Patient was reassured and will be monitored closely for any adverse effect. Patient did receive this pain medicine before in the past. Medical Decision Making MDM MDM: Differential diagnosis: Gingivitis, broken tooth with exposed pulp, pulpitis, periodontitis, osteomyelitis of the jaw Rationale: Tests considered and ordered secondary to shared decision making include: Previous outside records reviewed: Old ER visits. Risk of complication and/or morbidity or mortality of patient management: None Medications-Per medication reconciliation Need for hospitalization: Patient does not meet criteria for hospitalization. Need for emergency major/minor surgery: No There are no social concerns with this patient. Prescription drug management Prescriptions will include symptomatic care, Tylenol with codeine for significant pain. Augmentin. Patient's prior external medical records from other ER visits were reviewed by me as indicated. Prior testing and results from previous visits were reviewed. Prior tests were taken into account with medical decision making and resource utilization, independent historian/historians were used to obtain complete medical history. I independently interpreted the test that were performed, results were reviewed by me and considered findings on radiology if ordered. Medical management and examination interpretation discussions were had by me with other qualified healthcare professionals as indicated for the patient's care. *Dr MCGOWAN: I took over care of this patient at 0700 pending the radiology read. There was a delay in care due to waiting for the radiology read. Radiology report shows open dental caries involving the 1st left maxillary tooth (12.) No adjacent stranding or focal fluid collections or signs of osteomyelitis. We wi ll treat as a dental infection with outpatient antibiotics and outpatient follow-up with a dentist. Problem List Problem List: (1) Broken tooth with complication (2) Chronic pulpitis (3) Headache DX & DISP Disposition: Discharge Departure Impression: Primary Impression: Chronic pulpitis Additional Impressions: Broken tooth with complication, Headache, Anxiety Condition: Stable Scripts Ibuprofen (Ibuprofen 800 mg Tab) 800 Mg Tab 800 MG PO Q6H PRN for PAIN, #30 TAB Prov: DALLIN MCGOWAN DO 02/19/24 Acetaminophen with Codeine (Acetaminophen-Cod #3 Tablet) 300 Mg-30 Mg Tablet 1 TAB PO Q6HPRN PRN for pain for 7 Days, #20 TAB 0 Refills Prov: DALLIN MCGOWAN DO 02/19/24 Amoxicillin/Potassium Clav (Augmentin 500-125 Tablet) 500 Mg-125 Mg Tablet 1 TAB PO BID for 10 Days, #20 TAB 0 Refills Prov: DALLIN MCGOWAN DO 02/19/24 Chlorhexidine Gluconate (Chlorhexidine Gluconate) 0.12 % Mouthwash 15 ML PO BID for 14 Days, #473 ML 0 Refills Swish and spit Prov: АНДРЕЙ WILSON MD 02/19/24 Additional Instructions: You have a dental infection on tooth 12. You need to visit a dentist as soon as possible. The CT scan does not show any bony involvement of the infection. Your labwork (CBC, BMP) does not show any major abnormalities or signs of significant infection. I've prescribed mouthwash to use 3 times per day. Use as directed. I've prescribed Augmentin, which is an oral antibiotic. Take as prescribed. For pain, I've prescribed ibuprofen and T3 (tylenol with codeine). You can take the ibuprofen 3 times per day, and the T3 4 times per day as needed. Return to the emergency department if you have any concerns. Referrals: KAMILAH ROJAS MD (PCP) АНДРЕЙ WILSON MD Feb 19, 2024 05:21 DALLIN MCGOWAN DO Feb 19, 2024 08:15
[2024-02-19] MEDS ORDERED: CHLO473M2 PO (05:23)
[2024-02-19 05:29] LABS: BASOPHILS # (AUTO) 0.03 K/uL (0.00-0.20); BASOPHILS % (AUTO) 0.4 % (0.0-5.0); EOSINOPHILS # (AUTO) 0.15 K/uL (0.00-0.70); EOSINOPHILS % (AUTO) 1.8 % (0.0-8.0); IMMATURE GRANULOCYTE ABSOLUTE 0.02 K/uL (0-1); LYMPHOCYTES # (AUTO) 2.7 K/uL (1.0-4.8); LYMPHOCYTES % (AUTO) 31.5 % (21.0-51.0); MEAN CORPUSCULAR HEMOGLOBIN 24.1 pg (27.0-33.0); MEAN CORPUSCULAR HGB CONC 30.5 g/dL (32.0-36.0); MEAN CORPUSCULAR VOLUME 79.1 fL (79-99); MONOCYTES # (AUTO) 0.6 K/uL (0.1-1.0); MONOCYTES % (AUTO) 7.1 % (3.0-13.0); PLATELET COUNT (AUTO) 348 K/uL (130-400); RED BLOOD CELL COUNT(AUTO) 4.68 MIL/uL (4.00-5.50); RED CELL DISTRIBUTION WIDTH 14.3 % (11.0-15.5); WHITE BLOOD COUNT (AUTO) 8.5 K/uL (4.8-10.8)
[2024-02-19 05:31] LABS: APPEARANCE,URINE CLOUDY (CLEAR); BILIRUBIN,URINE NEGATIVE (NEGATIVE); COLOR,URINE LIGHT-YELLOW (YELLOW); GLUCOSE, URINE (UA) NEGATIVE (NEGATIVE); KETONES,URINE NEGATIVE (NEGATIVE); LEUKOCYTE ESTERASE ,URINE NEGATIVE Leu/uL (NEGATIVE); NITRATE,URINE NEGATIVE (NEGATIVE); OCCULT BLOOD,URINE NEGATIVE (NEGATIVE); PH,URINE 6.5 (5.0-8.0); PROTEIN,URINE NEGATIVE (NEGATIVE); UROBILINOGEN,URINE 0.2 mg/dL (0.2-1.0)
[2024-02-19 05:34] LABS: HCG,QUALITATIVE URINE NEGATIVE (NEGATIVE)
[2024-02-19 05:35] LABS: ADD UA MICROSCOPIC YES
[2024-02-19 05:36] LABS: BACTERIA,URINE FEW /HPF (None Seen); MUCUS,URINE RARE LPF (None Seen); RBC,URINE 0-1 /HPF (0-1); SQUAMOUS EPITHELIAL CELL,UR MANY /HPF (0-2)
[2024-02-19 05:36] LABS: CREATININE 0.9 mg/dL (0.5-1.0); POTASSIUM 3.7 mmol/L (3.5-5.1)
[2024-02-19] MEDS: hydroMORPHone 1 MG INJ IVP ONE (05:39)
--- NOTE | 2024-02-19 05:45 | NUR ---
patient reported feeling tightness in throat, nausea and vomiting. vital signs within range, no swelling noted, ed md at bedside.
--- NOTE | 2024-02-19 05:50 | NUR ---
Nevaeh calzada in EDM - 02/19/24 at 0641 by ALESSANDRO patient reported feeling tightness in throat, nausea and vomiting. vital signs within range, ed md at bedside.
[2024-02-19] MEDS: ondanSETRON 4MG INJ IVP ONE ×2 (05:58→06:52)
[2024-02-19] MEDS: FAMOTIDINE 20MG VIAL IV ONE ×2 (05:58)
[2024-02-19] MEDS: ondanSETRON 4MG INJ ONE (05:58)
[2024-02-19] MEDS ORDERED: AMOX-426 PO (08:13)
[2024-02-19] MEDS ORDERED: ACET-2079 PO (08:13)
[2024-02-19] MEDS ORDERED: IBUP-2077 PO (08:13)
--- NOTE | 2024-02-19 08:24 | HMCIMG ---
CT MAXILLOFACIAL W/O CONTRAST REASON: broken left upper first molar, pulpitis, r/o osteo COMPARISON: 06/24/2023 TECHNIQUE: Axial images are obtained through the facial bones with bone and soft tissue window presentation. Sagittal and coronal reconstruction images were then performed. FINDINGS: There are multiple dental caries. Particular attention to the first maxillary molar on the left shows normal-appearing roots. There is no evidence of apical abscess or osteomyelitis. Facial bones appear unremarkable. Paranasal sinuses are normally aerated. Globes and retrobulbar soft tissues appear normal as do remaining soft tissues. There are no foreign bodies. IMPRESSION: 1. No acute finding. 2. No evidence of osteomyelitis involving the left upper first molar.
[2024-02-19 08:36] VITALS: BP 104/80; PULSE 70; RESP 20; TEMP 98.4; O2SAT 100
== END 2024-02-19 08:37 | disposition home or self-care (01) ==
LOC: EDH 04:31
DX: S02.5XXA Fracture of tooth (traumatic), initial encounter for closed fracture (principal); K04.01 Reversible pulpitis; F41.9 Anxiety disorder, unspecified; R51.9 Headache, unspecified; F32.A Depression, unspecified; Z79.899 Other long term (current) drug therapy; F90.9 Attention-deficit hyperactivity disorder, unspecified type; X58.XXXA Exposure to other specified factors, initial encounter; Y93.89 Activity, other specified; Y92.89 Other specified places as the place of occurrence of the external cause; Y99.8 Other external cause status
CPT/HCPCS: 99285; 96374; 70486; 96375; 80048; 85025; 81001; 81025; 36415; 96376; J3490; J1171; J2405 ×2